=== PATIENT | female | born 1940 | race Caucasian/White ===

== ENCOUNTER → 2018-09-05 | Outpatient (CLI) | payer MEDICARE, BC | LOC: DL.US 09:44 | PROVIDERS: ATTEND Nurse Practitioner Family | DX: I08.3 Combined rheumatic disorders of mitral, aortic and tricuspid valves (principal); R94.30 Abnormal result of cardiovascular function study, unspecified | CPT/HCPCS: 93306 ==

== ENCOUNTER 2024-05-15 18:07 | Emergency (ER) | payer MEDICARE, BC ==
[2024-05-15] MEDS: Succinylcholine 200 MG/10 ML MDV IVPUSH ONE (18:11)
[2024-05-15] MEDS: propofoL 1,000 MG/100 ML 100 ML IV SCH (18:17)
[2024-05-15 18:26] LABS: HEMATOCRIT 48.5 % (37.0-47.0); HEMOGLOBIN 15.8 g/dL (12.0-16.0); MEAN CORPUSCULAR HEMOGLOBIN 31.2 pg (27.0-34.0); MEAN CORPUSCULAR HGB CONC 32.6 g/dL (33.0-35.0); MEAN CORPUSCULAR VOLUME 95.8 fL (80-100); PLATELET COUNT,PLT 329 10^3/uL (150-450); RED BLOOD CELL COUNT 5.06 10^6/uL (4.2-5.4); WHITE BLOOD CELL COUNT,WBC 19.5 10^3/uL (5.0-10.0)
[2024-05-15 18:27] LABS: BASOPHILS PERCENT AUTO 0.6 % (0.0-1.0); EOSINOPHILS PERCENT AUTO 6.2 % (1.0-3.0); LYMPHOCYTES PERCENT AUTO 19.3 % (20.5-50.1); MONOCYTES PERCENT AUTO 4.4 % (2-8); NEUTROPHILS PERCENT AUTO 69.5 % (42.2-75.2)
[2024-05-15 18:49] LABS: A/G RATIO 0.9; ALANINE AMINOTRANSFERASE,ALT 67 U/L (14-59); ALBUMIN 3.4 g/dL (3.4-5.0); ALKALINE PHOSPHATASE 132 U/L (46-116); ASPARTATE AMNIOTRANSFERASE,AST 56 U/L (15-37); BILIRUBIN TOTAL 0.9 mg/dL (0.2-1.0); BLOOD UREA NITROGEN,BUN 23 mg/dL (7-18); BUN/CREATININE RATIO 18.3 (No establ ref range); CALCIUM 8.8 mg/dL (8.5-10.1); CARBON DIOXIDE,CO2 23 mmol/L (21-32); CREATININE 1.26 mg/dL (0.55-1.02); GLUCOSE RANDOM 285 mg/dL (70-99); PROTEIN TOTAL,TP 7.3 g/dL (6.4-8.2)
[2024-05-15 18:51] LABS: BAND PERCENT MAN 2 %; EOSINOPHILS PERCENT MAN 5 % (1-3); LYMPHOCYTES PERCENT MAN 11 % (20-50); MONOCYTES PERCENT MAN 2 % (2-8); SEG NEUTROPHILS PERCENT MAN 80 % (42-75)
[2024-05-15] MEDS: Sodium Chloride 0.9% 1,000 ML IV SCH ×2 (19:03→19:30)
[2024-05-15 19:04] LABS: ANION GAP 16.6 mEq/L (7-13); CHLORIDE,CL 99 mmol/L (98-107); ESTIMATED GFR 43 mL/min (>=60); POTASSIUM,K 4.6 mmol/L (3.5-5.1); SODIUM,NA 134 mmol/L (136-145)
[2024-05-15 19:09] LABS: ALLEN TEST POSITIVE; O2 DELIVERY DEVICE BIPAP; O2 FLOW RATE 100
[2024-05-15 19:11] LABS: PCO2 ARTERIAL 69 mmHg (35-45); PH,ARTERIAL 7.16 (7.35-7.45)
[2024-05-15 19:12] LABS: BASE EXCESS ARTERIAL -7 mmol/L ((-2)-(+3)); BICARBONATE,ARTERIAL 23.4 mmol/L (22-26); O2 SATURATION ARTERIAL 97 % (95-100); PO2 ARTERIAL 129 mmHg (70-100)
[2024-05-15] MEDS: Etomidate 2 MG/ML 10 ML SDV IVPUSH ONE (19:21)
[2024-05-15] MEDS: Rocuronium 100 MG/10 ML MDV IVPUSH ONE (19:22)
[2024-05-15] MEDS: Azithromycin 500 MG in Sodium Chloride 0.9% 250 ML IV ONE (19:25)
[2024-05-15] MEDS: Meropenem 1 GM SDV IVPUSH ONE (19:39)
[2024-05-15] MEDS: Furosemide 20 MG/2 ML VIAL IVPUSH ONE (20:00)
[2024-05-15 20:02] LABS: APPEARANCE,URINE SLIGHTLY CLOUDY (CLEAR); BILIRUBIN,URINE NEGATIVE (NEGATIVE); COLOR,URINE YELLOW (YELLOW); GLUCOSE,URINE NEGATIVE (NEGATIVE); KETONES,URINE NEGATIVE (NEGATIVE); LEUKOCYTE ESTERASE,URINE NEGATIVE (NEGATIVE); NITRITE,URINE NEGATIVE (NEGATIVE); OCCULT BLOOD,URINE SMALL (NEGATIVE); PH,URINE 5.5 (5.0-9.0); PROTEIN,URINE 100 (NEGATIVE)
[2024-05-15] MEDS ORDERED: Norepinephrine Bit/D5W Premix 250 ML ONE (20:13)
[2024-05-15 20:14] LABS: BACTERIA,URINE MODERATE /HPF (0-FEW/HPF); CALCIUM OXALATE CRYSTALS,URINE FEW /HPF (NOT SEEN); EPITHELIAL CELLS,URINE FEW /HPF (NOT SEEN); MUCUS,URINE FEW /LPF (NOT SEEN); YEAST,URINE FEW /HPF (NOT SEEN)
[2024-05-15 20:15] LABS: FINE GRANULAR CASTS,URINE FEW /LPF (NOT SEEN); GRANULAR CASTS,URINE FEW
[2024-05-15 20:16] LABS: AMORPHOUS SEDIMENT,URINE MODERATE /HPF (NOT SEEN)
[2024-05-15] MEDS: Midazolam 5 MG/ML 10 ML MDV IV SCH (20:17)
[2024-05-15] MEDS: fentaNYL 100 MCG/2 ML SDV IV ONE (20:18)
[2024-05-15] MEDS: fentaNYL 100 MCG/2 ML SDV IVPUSH ONE (20:32)
== END 2024-05-15 20:45 ==
LOC: DL.ED 18:07
DX: J18.9 Pneumonia, unspecified organism (principal); I50.41 Acute combined systolic (congestive) and diastolic (congestive) heart failure; J96.01 Acute respiratory failure with hypoxia; I48.91 Unspecified atrial fibrillation; Z88.6 Allergy status to analgesic agent; Z88.0 Allergy status to penicillin; Z88.7 Allergy status to serum and vaccine; Z88.8 Allergy status to other drugs, medicaments and biological substances; Z88.1 Allergy status to other antibiotic agents; Z79.899 Other long term (current) drug therapy
CPT/HCPCS: 31500; 36415; 36600; 51702; 71045; 80053; 81001; 82803; 83605; 84484; 85025; 87040; 87428; 92950; 93005; 93010; 96365; 96366; 96368; 96375; 99285; J0330; J0456; J1940; J2185; J2250; J2704; J3010; J3490; J7030; J7050